=== PATIENT | female | born 1990 | race Caucasian/White ===

== ENCOUNTER 2024-03-21 09:31 | Outpatient (CLI) | payer MEDICAID, SELFPAY ==
[2024-03-21 16:32] LABS: Chlamydia DNA Amplified* NOT DETECTED (No Detected); GC DNA Amplified* NOT DETECTED (No Detected)
== END 2024-03-21 09:32 | disposition home or self-care (01) ==
PROVIDERS: PCP Family Medicine; Visit Provider Registered Nurse
DX: Z34.92 Encounter for supervision of normal pregnancy, unspecified, second trimester (principal); Z3A.22 22 weeks gestation of pregnancy
CPT/HCPCS: 82565; 82570; 84156; 84450; 84460; 84520; 86592; 86703; 86704; 86706; 86762; 86787; 86803; 86850; 86900; 86901; 87086; 87340; 87491; 87591

== ENCOUNTER 2024-03-21 10:18 | Outpatient (CLI) | payer MEDICAID, SELFPAY ==
--- NOTE | 2024-03-21 11:00 | CRLHL7_ITS ---
For Patients: As a result of the Century Cures Act, medical imaging exams and procedure reports are released immediately into your electronic medical record. You may view this report before your referring provider. If you have questions, please contact your health care provider. INDICATION: Evaluate anatomy. COMPARISON: none TECHNIQUE: Real time hayes scale imaging of the fetus was performed as well as color Doppler analysis of the umbilical vessels. FINDINGS: Sonographic imaging demonstrates a single living intrauterine gestation. Fetus demonstrates a regular cardiac rate of 154 beats per minute. Fetus has a breech position. The placenta lies anteriorly without evidence of placenta previa. Placental edge is 4.6 cm from the internal cervical os. Placental rojo is present measuring 3.5 x 2.1 x 2.8 cm. Amniotic fluid volume appears normal. Single deepest vertical pocket: 4.3 cm. The cervix is closed and measures 4.0 cm in length. The composite ultrasound gestational age is calculated at 22 weeks 2 days with an estimated sonographic due date of 07/23/2024. The estimated weight is 485 grams which lies at the 40th %. The following biometric measurements were obtained: Biparietal diameter: 5.3 cm/22 weeks 1 day 39th% Head circumference: 19.8 cm/22 weeks 0 days 26th% Abdominal circumference: 17.6 cm/22 weeks 3 days 48th% Femur length: 3.8 cm/22 weeks 0 days 29th% The HC/AC ratio measures: 1.13 range (1.05-1.22) On anatomic survey, there is a normal appearance of the cerebral ventricles, cavum septi pellucidi, cisterna magna and cerebellum. The nose, lips, and facial profile appear normal. The cervical, thoracic and lumbar spine are well visualized and appear normal. There is a normal four-chamber heart view and the left and right ventricular outflow tracts appear normal. The diaphragm and stomach appear normal. The kidneys and bladder also appear normal. There is a normal three-vessel cord and there is an eccentric cord insertion site. The four extremities appear normal. IMPRESSION: Normal OB ultrasound exam with concordance of clinical and sonographic dating. No intrinsic abnormalities noted on anatomic survey. Placental rojo measuring 3.5 x 2.1 x 2.8 cm. Dictated by Jose Dey MD @ 03/23/2024 1:28:34 PM (Electronically Signed)
== END 2024-03-21 10:19 | disposition home or self-care (01) ==
LOC: US 10:18
PROVIDERS: PCP Family Medicine; Visit Provider Registered Nurse
DX: Z34.92 Encounter for supervision of normal pregnancy, unspecified, second trimester (principal); Z3A.22 22 weeks gestation of pregnancy
CPT/HCPCS: 76805; 82565; 82570; 84156; 84450; 84460; 84520; 86703; 86706; 86803; 86850; 86900; 86901; 87086; 87340; 87491; 87591

== ENCOUNTER 2024-04-16 07:00 | Outpatient (CLI) | payer OTHER, MEDICAID, SELFPAY | END 2024-04-16 07:01 | disposition home or self-care (01) | LOC: NFLDREF 14:19 | PROVIDERS: PCP Family Medicine; Referring Provider Family Medicine; Visit Provider Obstetrics & Gynecology | DX: Z34.82 Encounter for supervision of other normal pregnancy, second trimester (principal) | CPT/HCPCS: 82570; 84156 ==

== ENCOUNTER 2024-05-04 09:36 | Outpatient (CLI) | payer OTHER, MEDICAID, SELFPAY | END 2024-05-04 09:37 | disposition home or self-care (01) | LOC: NFLDREF 09:37 | PROVIDERS: PCP Family Medicine; Visit Provider Obstetrics & Gynecology | DX: O99.012 Anemia complicating pregnancy, second trimester (principal); Z3A.27 27 weeks gestation of pregnancy | CPT/HCPCS: 86592; 86850; J2791 ==

== ENCOUNTER 2024-06-25 11:03 | Outpatient (CLI) | payer OTHER, MEDICAID, SELFPAY ==
--- NOTE | 2024-06-25 11:15 | CRLHL7_ITS ---
For Patients: As a result of the Century Cures Act, medical imaging exams and procedure reports are released immediately into your electronic medical record. You may view this report before your referring provider. If you have questions, please contact your health care provider. INDICATION: Third trimester scan, evaluate growth. Hx of pre-eclampsia. COMPARISON: 05/03/2020 TECHNIQUE: Real time hayes scale imaging of the fetus was performed. FINDINGS: Sonographic imaging demonstrates a single living intrauterine gestation. Fetus demonstrates a regular cardiac rate of 138 beats per minute. Fetus has a vertex position. The placenta lies anteriorly. Amniotic fluid volume appears normal and there is a single deepest vertical pocket: 6.1 cm. The estimated weight is 2981gm which lies at the 86th %. On the prior OB ultrasound exam dated 05/03/2024 the estimated weight was at the 34th%. BPD 60th percentile. HC is 28th percentile. AC greater than 97th percentile. FL is 28th percentile. The HC/AC ratio measures 0.93 range (0.93-1.08). IMPRESSION: Sonographic gestational age 35 weeks 6 days and a sonographic due date of 07/24/2024. Sonographic age is 5 days ahead of the clinical age. Estimated weight 86th percentile. Abdominal circumference greater than 97th percentile. Dictated by Jose Dey MD @ 06/25/2024 12:26:50 PM (Electronically Signed)
== END 2024-06-25 11:04 | disposition home or self-care (01) ==
LOC: US 11:03
PROVIDERS: PCP Family Medicine; Visit Provider Obstetrics & Gynecology
DX: Z34.93 Encounter for supervision of normal pregnancy, unspecified, third trimester (principal); Z3A.35 35 weeks gestation of pregnancy; Z87.59 Personal history of other complications of pregnancy, childbirth and the puerperium
CPT/HCPCS: 76816

== ENCOUNTER 2024-07-02 10:33 | Outpatient (CLI) | payer OTHER, MEDICAID, SELFPAY ==
[2024-07-03 12:48] LABS: Strep B DNA Probe Negative (Negative)
[2024-07-03 12:59] LABS: Strep B Susceptibility Needed? No
== END 2024-07-02 10:34 | disposition home or self-care (01) ==
LOC: NFLDREF 10:34
PROVIDERS: PCP Family Medicine; Visit Provider Obstetrics & Gynecology
DX: Z34.93 Encounter for supervision of normal pregnancy, unspecified, third trimester (principal); Z3A.36 36 weeks gestation of pregnancy
CPT/HCPCS: 87081; 87653

== ENCOUNTER 2024-07-17 08:30 | Outpatient (CLI) | payer OTHER, MEDICAID, SELFPAY ==
[2024-07-17 08:41] VITALS: BP 136/82; PULSE 103; PULSE 95; O2SAT 95
[2024-07-17 08:59] VITALS: RESP 18; TEMP 36.4
[2024-07-17 09:14] LABS: Amnisure Rom* Negative
[2024-07-17 09:25] LABS: Appearance Urine Clear (Clear); Bilirubin Urine Negative (Negative); Blood Urine Negative (Negative); Color Urine Light yellow (Yellow); Glucose Urine Negative (Negative); Ketones Urine Negative (Negative)
[2024-07-17 09:26] LABS: Leukocyte Esterase Urine Negative (Negative); Nitrite Urine Negative (Negative); Protein Urine Negative (Negative); Urobilinogen Urine 0.2 (0.2-1.0)
--- NOTE | 2024-07-17 09:37 | PC.OBNST ---
NST Note NST Note Start: 07/17/24 08:35 Freq: ONCE Status: Active Protocol: Document 07/17/24 08:35 [facility] (Rec: 07/17/24 09:37 [facility] [id number]) NST Note 4 Para (# of births) 3 EDC 07/29/24 Gestational Age In Weeks & Days 38 Weeks & 2 Days Patient Presented with Complaint(s) of Leaking fluid Other Complaints amnisure negative, patient not leaking fluid. Reactive Yes Appropriate for Gestational Age Yes RN Case RN Date 07/17/24 Reactive Yes Appropriate for Gestational Age Yes RN Purfest RN Date 07/17/24 OB NST charge Yes Complete NST Note via Write Note Yes The provider's electronic signature indicates the NST is reactive/appropriate for gestational age. *Note to provider: If an addendum is required, open the patient's chart and click on the note under the Nurse/Allied Health tab.
== END 2024-07-17 09:30 | disposition home or self-care (01) ==
LOC: OB OUT 08:31 → OB 08:31
PROVIDERS: PCP Family Medicine; Visit Provider Obstetrics & Gynecology
DX: Z34.93 Encounter for supervision of normal pregnancy, unspecified, third trimester (principal); Z3A.38 38 weeks gestation of pregnancy
CPT/HCPCS: 59025; 81003; 84112; G0463

== ENCOUNTER 2024-07-27 02:43 | Inpatient (IN) | payer OTHER, MEDICAID, SELFPAY ==
[2024-07-27] VITALS (68 sets, daily range): BP systolic 110–160; BP diastolic 55–94; PULSE 67–112; RESP 16–20; TEMP 36.6–37; O2SAT 91–100; BMI 31.6
[2024-07-27 02:52] LABS: Amnisure Rom* POSITIVE
[2024-07-27] MEDS: LACTATED RINGERS 1000 ML 1,000 ML 1100 ML IV ×2 (03:00→04:07)
[2024-07-27 03:40] LABS: Basophils Percent Auto 0.1 % (0.0-3.0); Eosinophils Percent Auto 0.7 % (0.0-7.0); Hemoglobin* 12.4 gm/dL (12.0-16.0); Immature Granulocytes Pct Auto 1.3 %; Mean Corpuscular HGB Conc 34 gm/dL (32-36); Mean Corpuscular Hemoglobin 32 pg (26-34); Mean Corpuscular Volume 94 fL (80-100); Monocytes Percent Auto 11.5 % (0.0-11.0); Neutrophils Percent Auto 65.4 % (42.0-72.0); Platelet Count* 345 K/uL (140-440); RDW Coefficient of Variation % 13.4 % (11.5-15.5); Red Blood Count 3.93 m/uL (4.00-5.20)
[2024-07-27] MEDS: LIDOCAINE 2% (PF) 5 ML VIAL EPIDURAL (03:54)
[2024-07-27] MEDS: ROPIVACAINE 0.2% 100 ml 100 ML 12 MG EPIDURAL (03:55)
--- NOTE | 2024-07-27 04:00 | P.ANBPRC_ITS ---
[facility] Medical History Vaginal delivery ?O80 - Encounter for full-term uncomplicated delivery (ICD-10) History of abnormal cervical Pap smear ?Z87.42 - Personal history of other diseases of the female genital tract (ICD-10) Surgical History History of hand surgery ?Z98.890 - Other specified postprocedural states (ICD-10) H/O breast augmentation ?Z98.82 - Breast implant status (ICD-10) H/O hernia repair ?Z98.890 - Other specified postprocedural states (ICD-10) ?Z87.19 - Personal history of other diseases of the digestive system (ICD-10) Family History Father Heart disease Other Diabetes Social History Narrative: 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 Lives with her 3 children, ages 16, 11, and 9. Her 16 and 9-year-old were born here, and her 11-year-old was born [address]. What is your current living situation?: I presently have a place to live Problems where you live: no known problems In the past 12 months, utilities in danger of being shut off: no In the past 12 mos, have been you worried that your food would run out before you had money to buy more?: never true In the past 12 mos, the food you bought just didn't last and you didn't have money to buy more?: never true Smoking Status: Current some day smoker How often does anyone, including family, friends and others, physically hurt you : never How often does anyone, including family, friends and others, insult or talk down to you: never How often does anyone, including family, friends and others, threaten you with harm: never How often does anyone, including family, friends and others, scream or curse at you: never Meds Home Medications and Allergies Home Medications ?Medication ?Instructions ?Recorded ?Confirmed ?Type docosahexaenoic acid 200 mg 200 mg PO DAILY 03/21/24 07/27/24 History capsule ( DHA) Allergies Allergy/AdvReac Type Severity Reaction Status Date / Time No Known Drug Allergies Allergy Verified 07/24/24 13:40 Results Labs Labs: Laboratory Results - last 24 hr 07/27/24 02:15 Membrane Rupture POSITIVE Vital Signs Vital Signs: Last Vital Signs Pulse 78 07/27/24 03:58 BP 132/77 07/27/24 03:58 Pulse Ox 100 07/27/24 03:56 Weight: 91.58 kg Height: 170 cm Anesthesia Procedures Epidural Insertion Patient Location: OB Start Time: 03:30 Stop Time: 04:00 Start Date: 07/27/24 Stop Date: 07/27/24 Reason for Block: primary anesthetic Patient Position: sitting Performed By: Nico Mclaughlin Preanesthetic Checklist: IV checked, risks and benefits discussed, surgical consent, monitors and equipment checked, pre-op evaluation, timeout performed and anesthesia consent Prep: chlorhexidine gluconate Monitoring: blood pressure monitoring, cardiac cath lab radiology technologist, continuous pulse oximetry and heart rate Approach: midline Vertebral Space: lumbar (1-5) Needle Type: Tuohy needle Injection Technique: continuous catheter (catheter) Needle gauge: 17 Needle Length (cm): 10 cm Needle Insertion Depth (cm): 5 Catheter Gauge: 19 Catheter Type: multi-orifice Catheter at skin depth (cm): 10 Test Dose Result: negative and lidocaine 1.5% with epinephrine 1 to 200,000
[2024-07-27 04:06] LABS: Slide Review Reflex No
[2024-07-27] MEDS: ONDANSETRON 2 MG/ML inj 4 MG IV (04:06)
[2024-07-27] MEDS: OXYTOCIN 30 unit/500 ML in NS 30 UNIT/500 ML BAG 300 UNIT IVPB (07:08)
--- NOTE | 2024-07-27 07:39 | P.LDBA_ITS ---
Subjective History of Present Illness Time Seen by Provider: 03:30 Narrative: Patient is being admitted to Labor and Delivery for spontaneous onset of labor with SROM. She is a 33 year old at 39 weeks gestation. Her full history and physical was dictated by Dr. Hickey on 07/12/2024. Please see this for details. Patient presented with SROM at home of clear fluid at 1:00 a.m.. Nursing reports she is grossly ruptured with positive AmniSure. 3.5 cm dilated on initial exam. She has having some regular painful contractions. No vaginal bleeding. Endorses active movement. Specific Issues/Plans Rosita Cruz 4 P 3003 Spouse: Quincy (). Children: Cassandra, Thai, Nadir. Baby: Boy! *undecided* H&P by M on 07/12/24 # [facility] on medical-surgical floor at [facility] # Advanced maternal age Genetic testing: Declines Level 2 ultrasound: Deferred, as she accessed care at 21+ weeks and perinatology was unable to get her an appointment until after 24 weeks and patient preferred to have a routine anatomy scan today while in clinic. # anxiety, PTSD, insomnia per patient; also with history of alcohol use disorder and borderline PD per psych provider. * Taking buspirone, Klonopin, Lunesta. Rare medical cannabis use. Sees a psychiatrist on a monthly basis. Sees a therapist once or twice per week in addition to group sessions a weekly basis. * Per psych provider 06/08: patient requested increase dose of clonazepam * Perinatology referral due to medication use: She plans to utilize buspirone and clonazepam 1st as there is more data on these agents in . She will utilize not Lunesta and medical cannabis only if she is still unable to find improvement. She is to call the pharmacist for a medication review appointment through [facility]. Patient is declining to do this per 06/25 visit. * Recommended against while using cannabis and Klonopin; not discussed with MFM. Patient still plans to breastfeed. * Trying to clarify hospital policy to cord blood testing; will inform patient when I have more information. Update:?no testing for mom and baby UNLESS there is a justifiable complication ( or ) that would have been caused by a controlled substance being used that was not prescribed to the pa tient by a provider. # possible pre eclampsia with first . baseline pre e labs: PC ratio elevated at 0.45. Await 24 hour urine. 24 hour urine at 21 weeks: Protein: 238.5, BUN, creatinine, AST, ALT all normal. Considered minimal baseline proteinuria by MFM. * ASA * Ultrasound for growth around 34 weeks per MFM # social stressors. Uncertain paternity. but x1.5 years. unlikely FOB. Not planning to do paternity testing. Uncertain if she will have her mother or her present during . # tobacco use. Cut down from 10 per day to very rare cigarette use. # Rh negative. Rhogam 05/04 # Anemia with Hb 10.3 at 28 weeks. * Ferrous sulfate 325 mg QOD * Repeat at 34 weeks: 11.7 # Genital herpes noted on problem list in [facility]. * Valacyclovir Ppx at 36 weeks # FAS US shows Placental rojo measuring 3.5 x 2.1 x 2.8 cm. * Not mentioned on level 2 scan #Suspected macrosomia at 34 week US 01/17/24: 13 weeks, 1 day by CRL. Viable wise with measurements consistent with an ONIEL of 07/23/24. 01/31/24: Viable early second trimester wise with measurements that are within 6 days of LMP dates. 03/19/24: Viable midtrimester wise scan with measurements consistent with LMP dates. 05/03/24: Level 2. Breech, anterior placenta without previa, three-vessel cord, normal fluid, EFW 67%, AC 60%, normal visualized anatomy. 06/25/24: Growth ultrasound reviewed in detail - EFW is 2981 g at 86%ile with AC greater than the 97th percentile.?SDP: 6.1cm, vertex. TDAP: 05/25/24 RSV: 06/07/24 COVID: 06/07/24 (employee- form sent to [employer] [facility]) FLU: 06/07/24 (employee - form sent to [employer] [facility]) OB - Problem Based A/P Additional Plan (1) Herpes simplex: Status: Acute (2) GERD (gastroesophageal reflux disease): Status: Acute (3) Anemia affecting : Status: Acute (4) Borderline personality disorder: Status: Chronic (5) Genital herpes: Status: Chronic (6) Depression: Status: Chronic (7) History of pre-eclampsia: Problem details: possible w/ first Status: Acute (8) Medical marijuana use: Problem details: Rare use for PTSD. Status: Acute (9) Tobacco use: Problem details: 10 cigarettes per day prior to . Currently, very rare use. Status: Acute (10) PTSD (post-traumatic stress disorder): Status: Acute (11) Anxiety: Problem details: Taking Klonopin and buspirone Status: Acute (12) Advanced maternal age (AMA) in : Status: Acute Plan Rosita is a 33-year-old admitted at 39 weeks for SROM and spontaneous onset of labor. is complicated by AMA, anxiety, PTSD (history of Klonopin, buspirone and Lunesta use - none in the last month), history of hypertensive disorder of , tobacco use disorder, Rh negative, anemia, genital herpes and suspected macrosomia. Patient is admitted for spontaneous onset of labor with SROM. I was called in with concern for imminent delivery, on my exam patient is 5/70/-1. Plan to proceed with regional anesthetic placement per patient request. Anticipate next exam in 2-4 hours, sooner as clinically indicated. Blood type A negative, plan cord blood at time of delivery. GBS negative. OB Exam Physical Exam Vital signs: Temp Pulse Resp BP Pulse Ox 98 F 90 18 133/68 98 07/27/24 06:55 07/27/24 07:31 07/27/24 06:55 07/27/24 07:31 07/27/24 07:29 Narrative: General: Alert and oriented, in distress secondary to pain with contractions Abdomen: Gravid. Nontender Cervix: 5/80/-1 by my exam. Previous RN exam was 3.5/60/-2. heart rate: Category 1 at this time, earlier assessment has been intermittently category 2. Baseline of 130 beats per minute, moderate variability, several quality fine 15 x 15 accelerations present.
--- NOTE | 2024-07-27 07:39 | W.PM.VAGD1_ITS ---
Procedure Delivery date: 07/27/24 Procedure Done: Global Procedure Details: Normal spontaneous vaginal delivery Events: AMA and Other (Anemia, GERD, genital herpes history, substance use (tobacco, medicinal THC), depression, PTSD) Intrapartal Events: None Delivery monitor: external FHT Route of delivery: Laceration description: None Estimated blood loss (mL): 200 Anesthesia type: Epidural Disposition: floor Complications: None Narrative: Rosita is a 33 yo G4 P 3 at 39 w 5 d GA admitted for spontaneous onset of labor with SROM. is complicated by AMA, anxiety, PTSD (history of Klonopin, buspirone and Lunesta use - none in the last month), history of hypertensive disorder of , tobacco use disorder, Rh negative, anemia, genital herpes and suspected macrosomia. heart tones on admission were category 1 and 2. Her labor progressed without augmentation and epidural was utilized for pain management. Status of bag of lopez: SROM occurred prior to admission, clear fluid. heart tones during active labor were category 1 in 2. She was complete at 0655 and started pushing at 0700. She made excellent descent throughout the second stage of labor, and had a normal spontaneous vaginal delivery at 0705. heart tones during second stage of labor were category 2 for intermittent variable and/or late decelerations with rapid return to ba seline. Baby delivered OA, restituted DREW and the anterior and posterior shoulders delivered without difficulty. Nuchal cord: Present x1, reduced at perineum. The cord was clamped and cut after delayed cord clamping. Active management of the third stage occurred with IV pitocin and gentle cord traction and the placenta delivered spontaneous and intact at 0713. Cord gases sent: no Cord blood sent for infant ABO: yes details: - Liveborn male fetus at 0705. Facial bruising noted from rapid descent and delivery. - weight pending - APGARs were 8 and 9 at 1 and 5 minutes respectively Perineum and vagina were inspected, and the following lacerations were noted: none, intact. No repair was required. Excellent hemostasis was noted. The following counts were correct: sponges, needles, instruments. Mother and in stable condition following the . Infant Gender: Male presentation: vertex Placental Delivery Description: Spontaneous Cord Description: Nuchal Cord
[2024-07-27] MEDS: IBUPROFEN 600 MG TABLET PO ×3 (08:41→21:26)
[2024-07-27] MEDS: DOCUSATE SODIUM 100 MG CAPSULE PO (10:03)
[2024-07-27] MEDS: ACETAMINOPHEN 500 MG TABLET 1000 MG PO ×2 (11:30→17:28)
[2024-07-27] MEDS: LANOLIN CREAM 1 APPLIC TOPICAL (21:43)
[2024-07-28] MEDS: ACETAMINOPHEN 500 MG TABLET 1000 MG PO ×2 (01:16→08:28)
[2024-07-28 01:18] VITALS: BP 122/78; PULSE 69; RESP 18; TEMP 36.4; O2SAT 96
[2024-07-28] MEDS: IBUPROFEN 600 MG TABLET PO (04:24)
[2024-07-28 04:26] VITALS: BP 112/74; PULSE 71; RESP 18; TEMP 36.6; O2SAT 96
[2024-07-28 06:43] LABS: Hemoglobin* 10.2 gm/dL (12.0-16.0)
[2024-07-28 08:18] VITALS: BP 128/82; PULSE 80; RESP 16; TEMP 36.6; O2SAT 98
--- NOTE | 2024-07-28 08:25 | P.DS_ITS ---
DS: Providers Provider Time Seen by Provider: 08:25 Date Seen: 07/28/24 Date of admission: 07/27/24 02:43 Primary care physician: Quyen Choudhury DO Admitting Clinician: Tanika Ruth MD Attending Physician on discharge: Regla Harvey MD Date of Discharge: 07/28/24 DS: Diagnosis Discharge Diagnosis (1) (normal spontaneous vaginal delivery): Status: Acute Exam Narrative: Exam Narrative: General: Pleasant, , well groomed woman in no acute distress. Vital signs: Included in her electronic medical record. Heart: Regular rate and rhythm without gallop, rub or murmur. Chest: Clear to auscultation bilaterally Abdomen: Soft, nontender, nondistended with normal bowel sounds throughout. Fundus firm at the umbilicus in the midline. Lochia: Small rubra Extremities: No pain or edema. Const: Vital Signs, click to edit/add: Vital Signs - 24 hr 07/27/24 08:30 07/27/24 08:31 07/27/24 08:46 Temperature 97.9 F Pulse Rate 85 87 Pulse Rate [Right Pulse Oximeter] Respiratory Rate Blood Pressure 131/68 141/75 H Blood Pressure [Le ft Arm] Pulse Oximetry Oxygen Delivery Me thod 07/27/24 08:50 07/27/24 08:53 07/27/24 08:55 Temperature Pulse Rate Pulse Rate [Right Pulse Oximeter] Respiratory Rate Blood Pressure Blood Pressure [Le ft Arm] Pulse Oximetry 98 91 98 Oxygen Delivery Me thod 07/27/24 09:01 07/27/24 09:16 07/27/24 09:31 Temperature Pulse Rate 81 81 78 Pulse Rate [Right Pulse Oximeter] Respiratory Rate Blood Pressure 143/67 H 126/55 L 117/68 Blood Pressure [Le ft Arm] Pulse Oximetry Oxygen Delivery Me thod 07/27/24 11:48 07/27/24 16:20 07/27/24 21:32 Temperature 98.4 F 97.8 F 97.9 F Pulse Rate Pulse Rate [Right Pulse Oximeter] 78 74 74 Respiratory Rate 18 20 18 Blood Pressure Blood Pressure [Le ft Arm] 120/66 132/80 127/77 Pulse Oximetry 95 95 97 Oxygen Delivery Me thod Room Air Room Air Room Air 07/28/24 01:18 07/28/24 04:26 07/28/24 08:18 Temperature 97.6 F 97.8 F 97.8 F Pulse Rate Pulse Rate [Right Pulse Oximeter] 69 71 80 Respiratory Rate 18 18 16 Blood Pressure Blood Pressure [Le ft Arm] 122/78 112/74 128/82 Pulse Oximetry 96 96 98 Oxygen Delivery Me thod Room Air Room Air Room Air OB - DS: Summary Hospital Course Hospital Course: The patient is a 33 year old G 4 P 3 now 4 at 39 weeks gestation that was admitted to the Center on 07/27/24 for spontaneous onset of labor. She had an uncomplicated vaginal delivery. She delivered a viable male . She is breast feeding. the patient has done well. She would like to be discharged home today Peripartum Data delivery method: Vaginal Laceration description: None Episiotomy description: None complications: none Champion Infant Gender: Male Time Spent with Patient Time attestation: Total time spent providing and/or coordinating discharge services: Discharge Plan Discharge Disposition: Home, Self-Care Date of Admission: 07/27/24 02:43 Attending Provider on Discharge: Regla Harvey Primary Care Provider: Quyen Choudhury Condition: Stable Anticipated Discharge Date/Time: 07/28/24 12:00 Discharge Medications: New docusate sodium 100 mg Capsule 100 mg PO BID PRN (Reason: constipation) Qty: 100 0RF ibuprofen 600 mg Tablet 600 mg PO Q6H PRNQty: 30 0RF Continued ferrous sulfate 325 mg (65 mg iron) tablet 325 mg PO Q OTHER DAY Qty: 30 0RF DHA 200 mg capsule 200 mg PO DAILY omeprazole 20 mg capsule,delayed release(DR/EC) 20 mg PO BID Qty: 60 1RF Discontinued valacyclovir 1 gram tablet 1,000 mg PO QDAY Qty: 60 0RF Discharge Orders: Discharge Order (Routine); Ordered 07/28/24 Ordered By: Regla Harvey Patient Education: Vaginal Delivery (DC) Additional Instructions: ACTIVITY RESTRICTIONS: * Nothing vaginally for 6 weeks: no tampons/intercourse * Off of work/school for a minimum of 6 weeks Symptoms to report to doctor: -Bleeding that saturates more than one pad per hour ?-Passing clots larger than the size of a golf ball ?-Pain not relieved by prescribed medication ?-Fever above 100.4 degrees Fahrenheit ?-A foul vaginal odor ?-Difficulty in emotions, mood and functions ?-Thoughts of hurting yourself and/or ?-Painful, reddened area in your breast ?-Any drainage, redness or tenderness in your IV/epidural site ?-Severe headache that doesn't improve after taking medications ?-Changes in vision, including temporary loss of vision, blurred vision, and/or light sensitivity ?-Upper abdominal pain (usually under ribs on the right side) ?-Decrease in urination or painful, frequent urinating ?-Chest pain ?-Shortness of breath ?-Tenderness or pain with redness and/swelling in the calf(s) of your leg Follow-up: 1. Optional 2 week visit: Discuss contraceptive options, screen for anxiety and depression. 2. A 6 week visit for an annual physical exam. consultation services are available to all mothers and babies for the first year after delivery.? To make an appointment, please call [phone]. Activity Level: Other Discharge Diet: Regular Follow Up Appointments: Quyen Choudhury DO [Primary Care Provider] - [facility] [Provider Group] Forms: MyHealth Info Instructions
[2024-07-28] MEDS: DOCUSATE SODIUM 100 MG CAPSULE PO (08:29)
[2024-07-29 00:03] LABS: Rapid Plasma Reagin (RPR) Non Reactive (Non Reactive)
== END 2024-07-28 11:30 | disposition home or self-care (01) | DRG 806 ==
LOC: OB OUT 02:54 → OB 02:54
PROVIDERS: Admitting Provider Obstetrics & Gynecology; PCP Family Medicine; Visit Provider Obstetrics & Gynecology
DX: O42.02 Full-term premature rupture of membranes, onset of labor within 24 hours of rupture (principal); O98.32 Other infections with a predominantly sexual mode of transmission complicating childbirth; Z37.0 Single live birth; Z3A.39 39 weeks gestation of pregnancy; O99.344 Other mental disorders complicating childbirth; F41.9 Anxiety disorder, unspecified; O99.334 Smoking (tobacco) complicating childbirth; F17.210 Nicotine dependence, cigarettes, uncomplicated; O99.02 Anemia complicating childbirth; D64.9 Anemia, unspecified; O26.893 Other specified pregnancy related conditions, third trimester; Z67.11 Type A blood, Rh negative; A60.09 Herpesviral infection of other urogenital tract; F60.3 Borderline personality disorder; Z65.9 Problem related to unspecified psychosocial circumstances; G47.00 Insomnia, unspecified; F43.10 Post-traumatic stress disorder, unspecified; Z87.59 Personal history of other complications of pregnancy, childbirth and the puerperium
CPT/HCPCS: 01967; 36415; 84112; 85018; 85025; 86592; 86850; 86870; 86880; 86900; 86901; G0463; A9270; J2371; J2405; J2795; J7120

== ENCOUNTER 2024-08-07 08:25 | Outpatient (RCR) | payer MEDICAID, SELFPAY | END 2024-11-09 10:21 | disposition home or self-care (01) | PROVIDERS: PCP Family Medicine; Visit Provider Obstetrics & Gynecology | DX: M53.3 Sacrococcygeal disorders, not elsewhere classified (principal); O80 Encounter for full-term uncomplicated delivery; Z39.1 Encounter for care and examination of lactating mother; R10.2 Pelvic and perineal pain; R27.8 Other lack of coordination; Z51.89 Encounter for other specified aftercare | CPT/HCPCS: 97110; 97140; 97161; 97535 ==

== ENCOUNTER 2025-07-29 16:43 | Outpatient (CLI) | payer BC, SELFPAY ==
[2025-07-29 20:57] LABS: Chlamydia DNA Amplified* NOT DETECTED (No Detected); GC DNA Amplified* NOT DETECTED (No Detected)
[2025-08-01 07:15] LABS: HPV Source Cervix
[2025-08-06 09:10] LABS: Pap Test Digital Imaging Done
== END 2025-07-29 16:44 | disposition home or self-care (01) ==
PROVIDERS: PCP Family Medicine; Visit Provider Physician Assistant
DX: Z11.3 Encounter for screening for infections with a predominantly sexual mode of transmission (principal); Z12.4 Encounter for screening for malignant neoplasm of cervix
CPT/HCPCS: 86592; 86703; 86803; 87340; 87491; 87591; 87624; 87625; 88141; 88142; 88175